=== PATIENT | male | born 1990 | race Hispanic/Latino ===

== ENCOUNTER 2019-06-16 20:46 | Emergency (ER) | payer OTHER ==
[~2019-06-16] VITALS: Ht 180.3 cm; Wt 59.4 kg
[~2019-06-16 20:46] MED LIST: EXCEDRIN MIGRA1 EAC2 PO
== END 2019-06-16 22:42 | disposition home or self-care (01) ==
LOC: ED 20:46
DX: J10.1 Influenza due to other identified influenza virus with other respiratory manifestations (principal); F17.200 Nicotine dependence, unspecified, uncomplicated
CPT/HCPCS: 99283